=== PATIENT | female | born 1955 | race Caucasian/White ===

== ENCOUNTER 2018-10-26 09:58 | Emergency (ER) | payer MEDICARE, MEDICAID ==
--- NOTE | 2018-10-26 10:12 | ER Document Report ---
ED General - General Mode of Arrival: Ambulatory Information source: Patient TRAVEL OUTSIDE OF THE [place] IN LAST 30 DAYS: No <MARIETTA SANTOYO - Last Filed: 10/26/18 10:53> <CATRACHITA JOSHI - Last Filed: 10/26/18 12:45> - General Stated Complaint: RIB PAIN Time Seen by Provider: 10/26/18 10:01 Notes: Patient is a 63 year old female with HTN, hypothyroidism, COPD, and a history of an acute lacunar infarct(08/2015) presents to the emergency department comp laining of rib pain. Patient states the pain was onset a few weeks ago and worsened the last few days. She describes the pain as cramps similar to gas located over her ribs bilaterally although somewhat worse on the left. She states the pain occasionally radiates into her back. She also complains of some pain with breathing. Patient states she follows up with [facility]. (MARIETTA SANTOYO) - Related Data Allergies/Adverse Reactions: levofloxacin [From Levaquin] Allergy (Mild, Verified 11/23/15 14:08) Dizziness erythromycin base [Erythromycin Base] Allergy (Verified 11/23/15 14:08) Penicillins Allergy (Verified 11/23/15 14:08) Past Medical History - General Information source: Patient - Social History Smoking Status: Current Every Day Smoker Cigarette use (# per day): Yes - 1 PPD Frequency of alcohol use: Occasional Family History: Reviewed & Not Pertinent - Past Medical History Cardiac Medical History: Reports: Hx Hypertension Pulmonary Medical History: Reports: Hx Bronchitis Neurological Medical History: Reports: Hx Cerebrovascular Accident - AUG, 2015 BLINDNESS FEW DAYS, RESOLVED Endocrine Medical History: Reports: Hx Hypothyroidism Musculoskeletal Medical History: Reports Hx Arthritis Psychiatric Medical History: Reports: Hx Bipolar Disorder, Hx Depression Past Surgical History: Reports: Hx Section, Hx Cholecystectomy, Hx Hysterectomy - Immunizations Hx Diphtheria, Pertussis, Tetanus Vaccination: Yes <MARIETTA SANTOYO - Last Filed: 10/26/18 10:53> Review of Systems - Review of Systems Constitutional: No symptoms reported EENT: No symptoms reported Cardiovascular: No symptoms reported Respiratory: See HPI Gastrointestinal: No symptoms reported Genitourinary: No symptoms reported Female Genitourinary: No symptoms reported Musculoskeletal: See HPI Skin: No symptoms reported Hematologic/Lymphatic: No symptoms reported Neurological/Psychological: No symptoms reported -: Yes All other systems reviewed and negative <MARIETTA SANTOYO - Last Filed: 10/26/18 10:53> Physical Exam <MARIETTA SANTOYO - Last Filed: 10/26/18 10:53> - Vital signs Vitals: Pulse Resp BP Pulse Ox 78 20 129/79 H 98 10/26/18 10:11 10/26/18 10:11 10/26/18 10:11 10/26/18 10:11 - Notes Notes: GENERAL: Alert, interacts well. No acute distress. HEAD: Normocephalic, atraumatic. EYES: Pupils equal, round, and reactive to light. Extraocular movements intact. ENT: Oral mucosa moist, tongue midline. NECK: Full range of motion. Supple. Trachea midline. LUNGS: Expiratory wheezes. No respiratory distress. Anterior chest wall tender to palpation bilaterally. Right lateral ribs tender to palpation. Left anterior lateral ribs exquisitely tender to palpation. HEART: Frequent premature beats. 2/6 systolic murmur. ABDOMEN: Soft, morbidly obese, non-tender. Non-distended. Bowel sounds present in all 4 quadrants. EXTREMITIES: Moves all 4 extremities spontaneously. No edema, radial and dorsalis pedis pulses 2/4 bilaterally. No cyanosis. NEUROLOGICAL: Alert and oriented x3. Normal speech. PSYCH: Normal affect, normal mood. SKIN: Warm, dry, normal turgor. No rashes or lesions noted. (MARIETTA SANTOYO) Course - Laboratory Result Diagrams: 10/26/18 10:15 10/26/18 10:15 <MARIETTA SANTOYO - Last Filed: 10/26/18 10:53> - Laboratory Result Diagrams: 10/26/18 10:15 10/26/18 10:15 - EKG Interpretation by Pa EKG shows normal: Sinus rhythm, [place], Intervals, QRS Complexes, ST-T Waves Rate: Normal - 69 Rhythm: NSR, PVC's, APC's [place]/QRS: Left axis deviation, IVCD Voltage: Consistant with LVH When compared to previous EKG there are: No significant change <CATRACHITA JOSHI - Last Filed: 10/26/18 12:45> - Vital Signs Vital signs: Temp Pulse Resp BP Pulse Ox 71 22 H 102/61 98 10/26/18 11:07 10/26/18 11:07 10/26/18 11:07 10/26/18 11:07 - Laboratory Laboratory results interpreted by me: 10/26/18 10/26/18 10/26/18 10:15 10:15 10:24 RDW 15.3 H Plt Count 120 L Seg Neuts % (Manual) 85 H Monocytes % (Manual) 1 L Metamyelocytes % 1 H Sodium 136.9 L Est GFR (Non-Af Amer) 56 L Direct Bilirubin 0.5 H AST 70 H ALT 65 H Creatine Kinase 194 H Urine Protein 30 H Urine Blood SMALL H Urine Bilirubin SMALL H Urine Urobilinogen 4.0 H Discharge <MARIETTA SANTOYO - Last Filed: 10/26/18 10:53> <CATRACHITA JOSHI - Last Filed: 10/26/18 12:45> - Discharge Clinical Impression: Chest wall pain, Dehydration Condition: Stable Disposition: HOME, SELF-CARE Additional Instructions: Dehydration Dehydration can result from vomiting or diarrhea, fever, or decreased intake of fluids. If severe, hospitalization and intravenous fluids may be required. Most cases are treated at home with fluids by mouth. For the next 24 hours, drink lots of clear fluids. In mild cases, this can be soda pop or sports drinks. For more severe dehydration, the doctor may recommend special fluids such as Pedialyte or Lytren. Try to get three liters (3 quarts) of fluid per day. If vomiting occurs, continue to drink the fluids frequently (every 15 to 20 minutes), but in small amounts (one or two ounces). Depending on the type of dehydration, the doctor may prescribe antinausea medicine or potassium replacements. Call the doctor or return for re-examination if you become progressively weak, vomit repeatedly, or have other new symptoms. Chest Wall Pain Your chest pain has been diagnosed as coming from the chest wall. This is often caused by straining the muscles or joints in the chest during physical activity, direct trauma, coughing, or vigorous vomiting. Persons with arthritis are especially prone to this type of pain, due to inflammation of the cartilage joints near the breast bone. Occasionally, no cause can be found. Rest from strenuous physical activity. This kind of chest pain is usually made worse by movement of the chest. Depending on the symptoms, we may prescribe medicine for pain, muscle relaxation, and antiinflammatory effects. If the pain is new, and seems to be due to muscle strain, cold packs can help. Otherwise, apply gentle warmth to the painful area for 15 minutes every hour or two. You should contact the doctor immediately if things change. Further evaluation is needed if you develop a fever or cough, if the nature of the pain changes, or if you become short of breath. The pain in your chest appears to be coming from the lateral ribs and the chest wall. There is no evidence today that would suggest the pain is due to your heart or your lungs. Your lab work does show that you are dehydrated. You should drink plenty of fluids today, and every day. Take ibuprofen or Aleve for your chest wall pain. Follow-up with your primary care provider this week for recheck if not improving. RETURN TO THE EMERGENCY ROOM IF ANY NEW OR WORSENING SYMPTOMS. Referrals: AIDAN KIM MD [NO LOCAL MD] - Follow up in 3-5 days [facility] Attestation: 10/26/18 10:47 I personally performed the services described in the documentation, reviewed and edited the documentation which was dictated to the scribe in my presence, and it accurately records my words and actions. (CATRACHITA JOSHI) Scribe Documentation - Scribe Written by Rufino:: Rufino Mccauley, 10/26/2018 10:26 acting as scribe for :: Nichole <MARIETTA SANTOYO - Last Filed: 10/26/18 10:53>
[2018-10-26 10:33] LABS: APPEARANCE,URINE SLIGHTLY-CLOUDY; BILIRUBIN,URINE SMALL (NEGATIVE); GLUCOSE, URINE NEGATIVE (NEGATIVE); KETONES,URINE NEGATIVE (NEGATIVE); LEUKOCYTE ESTERASE,URINE NEGATIVE (NEGATIVE); NITRITE,URINE NEGATIVE (NEGATIVE); PROTEIN,URINE 30 mg/dL (NEGATIVE); URINE SPECIFIC GRAVITY 1.034
[2018-10-26 10:34] LABS: HEMATOCRIT 42.8 % (36.0-47.0); HEMOGLOBIN 14.5 g/dL (12.0-15.5); MEAN CORPUSCULAR HEMOGLOBIN 31.6 pg (27.0-33.4); MEAN CORPUSCULAR VOLUME 93 fl (80-97); PLATELET COUNT 120 10^3/uL (150-450); RED CELL DISTRIBUTION WIDTH 15.3 % (11.5-14.0); WHITE BLOOD COUNT 5.3 10^3/uL (4.0-10.5)
[2018-10-26 10:34] LABS: COLOR,URINE DARK YELLOW
[2018-10-26 10:35] LABS: ALANINE AMINOTRANSFERASE 65 U/L (9-52); ALBUMIN 3.5 g/dL (3.5-5.0); ALKALINE PHOSPHATASE 92 U/L (38-126); ANION GAP 5 (5-19); ASPARTATE AMINO TRANSFERASE 70 U/L (14-36); BILIRUBIN,DIRECT 0.5 mg/dL (0.0-0.4); BILIRUBIN,TOTAL 1.1 mg/dL (0.2-1.3); BLOOD UREA NITROGEN 19 mg/dL (7-20); CALCIUM 8.7 mg/dL (8.4-10.2); CARBON DIOXIDE 26 mmol/L (22-30); CHLORIDE 106 mmol/L (98-107); CREATINE KINASE 194 U/L (30-135); GLUCOSE 109 mg/dL (75-110); SODIUM 136.9 mmol/L (137-145); TOTAL PROTEIN 6.4 g/dL (6.3-8.2)
--- NOTE | 2018-10-26 10:45 | RADIOLOGY REPORT (SQ) ---
EXAM DESCRIPTION: CHEST SINGLE VIEW COMPLETED DATE/TIME: 10/26/2018 10:37 am REASON FOR STUDY: Chest pain COMPARISON: 08/04/2015 EXAM PARAMETERS: NUMBER OF VIEWS: One view. TECHNIQUE: Single frontal radiographic view of the chest acquired. RADIATION DOSE: NA LIMITATIONS: None. FINDINGS: LUNGS AND PLEURA: No opacities, masses or pneumothorax. No pleural effusion. MEDIASTINUM AND HILAR STRUCTURES: No masses. Contour normal. HEART AND VASCULAR STRUCTURES: Heart normal in size. Normal vasculature. BONES: No acute findings. HARDWARE: None in the chest. OTHER: No other significant finding. IMPRESSION: NO ACUTE RADIOGRAPHIC FINDING IN THE CHEST. TECHNICAL DOCUMENTATION: JOB ID: [id number] [employer]- All Rights Reserved Reading location - IP/workstation name: [email or web address]
[2018-10-26 10:47] LABS: CREATINE KINASE MB 4.22 ng/mL (<4.55)
[2018-10-26] MEDS ORDERED: KETOROLAC TROMETHAMINE INJ/PF 30 MG/1 ML SDV IV ONE (10:48)
[2018-10-26] MEDS ORDERED: NORMAL SALINE 1000 ML 1,000 ML IV ONE (10:48)
[2018-10-26 10:52] LABS: TROPONIN I 0.035 ng/mL
[2018-10-26 11:03] LABS: ABSOLUTE LYMPHOCYTES# (MANUAL) 0.7 10^3/uL (0.5-4.7); ABSOLUTE MONOCYTES # (MANUAL) 0.1 10^3/uL (0.1-1.4); ABSOLUTE NEUTROPHILS# (MANUAL) 4.6 10^3/uL (1.7-8.2); BASOPHILS % (MANUAL) 0 % (0-2); EOSINOPHILS % (MANUAL) 0 % (0-6); LYMPHOCYTES % (MANUAL) 13 % (13-45); METAMYELOCYTES % (MANUAL) 1 % (0); MONOCYTES % (MANUAL) 1 % (3-13); PLATELET COMMENT DECREASED; POLYCHROMASIA SLIGHT; SEGMENTED NEUTROPHILS % (MAN) 85 % (42-78); TOTAL CELLS COUNTED 100; TOXIC GRANULATION SLIGHT
[2018-10-26 12:56] VITALS: BP 128/84
--- NOTE | 2018-10-27 13:11 | EKG REPORT ---
SEVERITY:- ABNORMAL ECG - SINUS RHYTHM NONSPECIFIC IVCD WITH LAD LEFT VENTRICULAR HYPERTROPHY : Confirmed by: Neftali Soliz 27-Oct-2018 13:11:08
== END 2018-10-26 12:56 | disposition home or self-care (01) ==
LOC: ER 09:58
DX: R07.89 Other chest pain (principal); E86.0 Dehydration; R07.81 Pleurodynia; I10 Essential (primary) hypertension; E03.9 Hypothyroidism, unspecified; J44.9 Chronic obstructive pulmonary disease, unspecified; F17.210 Nicotine dependence, cigarettes, uncomplicated
CPT/HCPCS: 93005; 99284; 96361; 96374; 36415; 82553; 82550; 85025; 80053; 81001; 84484; 71045; 93010; J1885; J7030

== ENCOUNTER 2020-07-25 10:04 | Emergency (ER) | payer MEDICARE, MEDICAID ==
[2020-07-25] MEDS ORDERED: MUPIROCIN 2% OINTMENT 22 GM TP ONE (11:18)
--- NOTE | 2020-07-25 11:25 | ER Document Report ---
ED General - General Chief Complaint: Laceration Stated Complaint: LACERATION/LEFT HAND Time Seen by Provider: 07/25/20 11:04 Primary Care Provider: AGNIESZKA THOMASON PA [Primary Care Provider] - Follow up as needed Mode of Arrival: Ambulatory Information source: Patient TRAVEL OUTSIDE OF THE [place] IN LAST 30 DAYS: No - HPI Notes: Patient presents with a left hand injury. She states this occurred yesterday when she tripped over a cat. She had her left hand on a piece of metal. She states she was not going to come to the hospital but her friends urged her to do so. Patient is not on any type of blood thinner. Patient complains of no significant pain at this time. When she has had pain that has been intermittent. It is been only if touched and is better if left alone. There is no radiation of the pain. It is been minor. - Related Data Allergies/Adverse Reactions: levofloxacin [From Levaquin] Allergy (Mild, Verified 07/25/20 10:10) Dizziness erythromycin base [Erythromycin Base] Allergy (Verified 07/25/20 10:10) Penicillins Allergy (Verified 07/25/20 10:10) Home Medications: htn. synthorid. wellbutrin. velor. amolodipine Past Medical History - General Information source: Patient - Social History Smoking Status: Current Every Day Smoker Chew tobacco use (# tins/day): No Frequency of alcohol use: None Drug Abuse: None Family History: Reviewed & Not Pertinent Patient has homicidal ideation: No - Past Medical History Cardiac Medical History: Reports: Hx Hypertension Denies: Hx Heart Attack Pulmonary Medical History: Reports: Hx Bronchitis Denies: Hx Asthma, Hx Tuberculosis Neurological Medical History: Reports: Hx Cerebrovascular Accident - AUG, 2015 BLINDNESS FEW DAYS, RESOLVED. Denies: Hx Seizures Endocrine Medical History: Reports: Hx Hypothyroidism Renal/ Medical History: Denies: Hx Peritoneal Dialysis GI Medical History: Denies: Hx Hepatitis, Hx Hiatal Hernia, Hx Ulcer Musculoskeletal Medical History: Reports Hx Arthritis Psychiatric Medical History: Reports: Hx Bipolar Disorder, Hx Depression Infectious Medical History: Denies: Hx Hepatitis Past Surgical History: Reports: Hx Section, Hx Cholecystectomy, Hx Hysterectomy. Denies: Hx Mastectomy, Hx Open Heart Surgery, Hx Pacemaker - Immunizations Hx Diphtheria, Pertussis, Tetanus Vaccination: Yes Review of Systems - Review of Systems Constitutional: denies: Chills, Fever Cardiovascular: denies: Chest pain, Palpitations Respiratory: denies: Cough, Short of breath -: Yes All other systems reviewed and negative Physical Exam - Vital signs Vitals: Temp Pulse Resp BP Pulse Ox 97.7 F 70 18 164/71 H 98 07/25/20 10:09 07/25/20 10:09 07/25/20 10:09 07/25/20 10:09 07/25/20 10:09 Interpretation: Hypertensive - General General appearance: Appears well, Alert - HEENT Head: Normocephalic, Atraumatic Eyes: Normal Pupils: PERRL - Respiratory Respiratory status: No respiratory distress Chest status: Nontender Breath sounds: Normal Chest palpation: Normal - Cardiovascular Rhythm: Regular Heart sounds: Normal auscultation Murmur: No - Abdominal Inspection: Normal Distension: No distension Bowel sounds: Normal Tenderness: Nontender Organomegaly: No organomegaly - Back Back: Normal, Nontender - Extremities General upper extremity: Nontender, Normal color, Normal ROM, Normal temperature, Other - Patient has an avulsion injury to the dorsal aspect of the thenar eminence. It is well approximated at this time. There is no active bleeding. No evidence of foreign body. There is no significant surrounding erythema or swelling. The piece of avulsed skin is too thin to be repaired with sutures. General lower extremity: Normal inspection, Nontender, Normal color, Normal ROM, Normal temperature, Normal weight bearing. No: Supriya's sign - Neurological Neuro grossly intact: Yes Cognition: Normal Orientation: AAOx4 Janie Coma Scale Eye Opening: Spontaneous [place] Coma Scale Verbal: Oriented [place] Coma Scale Motor: Obeys Commands [place] Coma Scale Total: 15 Speech: Normal Motor strength normal: LUE, RUE, LLE, RLE Sensory: Normal - Psychological Associated symptoms: Normal affect, Normal mood - Skin Skin Temperature: Warm Skin Moisture: Dry Skin Color: Other - Has avulsion injury as described under extremities Course - Re-evaluation Re-evalutation: 07/25/20 11:22 They have all skin is not amenable to suturing. Therefore to be treated with butterfly bandages and antibiotic ointment. - Vital Signs Vital signs: Temp Pulse Resp BP Pulse Ox 97.6 F 70 18 164/71 H 98 07/25/20 10:10 07/25/20 10:07/25/20 10:09 07/25/20 10:07/25/20 10:09 Discharge - Discharge Clinical Impression: Avulsion of left hand excluding fingers Qualifiers: Encounter type: initial encounter Qualified Code(s): S61.402A - Unspecified open wound of left hand, initial encounter Condition: Stable Disposition: HOME, SELF-CARE Instructions: Antibiotic Ointment Protection (OM), Tetanus Immunization Given ([facility]) Prescriptions: Mupirocin [Bactroban 2% Ointment 22 gm] 1 applic TP BID 14 Days #1 tube Referrals: AGNIESZKA THOMASON PA [Primary Care Provider] - Follow up as needed
[2020-07-25 11:31] VITALS: BP 166/75
== END 2020-07-25 11:40 | disposition home or self-care (01) ==
LOC: ER 10:04
DX: S61.412A Laceration without foreign body of left hand, initial encounter (principal); W01.0XXA Fall on same level from slipping, tripping and stumbling without subsequent striking against object, initial encounter; F17.200 Nicotine dependence, unspecified, uncomplicated; I10 Essential (primary) hypertension; Z90.49 Acquired absence of other specified parts of digestive tract; Z90.710 Acquired absence of both cervix and uterus
CPT/HCPCS: 99283